=== PATIENT | male | born 1965 | race Caucasian/White ===

== ENCOUNTER → 2021-08-10 | Outpatient (CLI) | payer BC | LOC: ORTHO 11:08 | PROVIDERS: ATTEND Orthopaedic Surgery | DX: S82.899A Other fracture of unspecified lower leg, initial encounter for closed fracture (principal); X58.XXXA Exposure to other specified factors, initial encounter | CPT/HCPCS: 99213 ==

== ENCOUNTER → 2021-08-17 | Outpatient (CLI) | payer BC ==
--- NOTE | 2021-08-17 11:24 | Diagnostic Imaging Report ---
EXAM: CT right ankle without contrast. DATE: August 17, 2021. INDICATION: 55-year-old male, right ankle pain and fracture. COMPARISON: Radiographs August 09, 2021. TECHNIQUE: Axial CT images of the right ankle were obtained without contrast. Coronal and sagittal reformats were obtained and provided. All CT scans use one or more of the following dose optimizing techniques: automated exposure control, MA and/or KvP adjustment based on patient size and exam type or iterative reconstruction. FINDINGS: There is a comminuted mildly displaced fracture of the posterior malleolus with the fracture site including involvement of the expected attachment site of the posterior syndesmotic ligament. There is irregularity of the contour of the posterior margin of the articulating surface of the distal tibia relating to this fracture. There is grossly unremarkable alignment of the ankle mortise. There is no additional identified fracture. There is no tibiotalar joint effusion or subtalar joint effusion. The joint spaces are well preserved. There is prominent and fairly diffuse subcutaneous edema. IMPRESSION: 1. Comminuted mildly displaced fracture of the posterior malleolus which includes fracture involvement of the expected attachment site of the posterior syndesmotic ligament. There is also associated irregularity of the articulating surface of the posterior margin of the distal tibia. 2. No additional identified acute fracture. 3. Grossly unremarkable alignment of the ankle mortise. Dictated by: Dictated on workstation # [id number]
== END ==
LOC: RAD FS 10:26
PROVIDERS: ATTEND Orthopaedic Surgery
DX: S82.391A Other fracture of lower end of right tibia, initial encounter for closed fracture (principal); X58.XXXA Exposure to other specified factors, initial encounter
CPT/HCPCS: 73700

== ENCOUNTER → 2021-09-09 | Outpatient (CLI) | payer BC ==
--- NOTE | 2021-09-09 14:56 | Diagnostic Imaging Report ---
INDICATION: Fracture followup. COMPARISON: 08/09/2021 FINDINGS: Multiple radiographic views of the right ankle were obtained. There is persistent moderate generalized soft tissue swelling and edema. Irregularity involving the posterior distal margins of the tibia is again identified and is consistent with fracture described on prior study. Fracture lines are less conspicuous. This may be related to partial interval healing versus slight changes in projection. No new acute osseous abnormalities seen. Joint spaces are maintained. No unexpected radiopaque foreign bodies are identified. IMPRESSION: 1. Redemonstration nonacute fracture of the distal right tibia as described above. Dictated by: Dictated on workstation # [id number]
== END ==
LOC: RAD FS 14:36
PROVIDERS: ATTEND Orthopaedic Surgery
DX: Z47.89 Encounter for other orthopedic aftercare (principal); S82.201D Unspecified fracture of shaft of right tibia, subsequent encounter for closed fracture with routine healing; X58.XXXD Exposure to other specified factors, subsequent encounter
CPT/HCPCS: 73610

== ENCOUNTER → 2021-10-07 | Outpatient (CLI) | payer BC ==
--- NOTE | 2021-10-07 15:40 | Diagnostic Imaging Report ---
INDICATION: Soft tissue swelling, followup. FINDINGS: The ankle alignment is normal. The ankle mortise is well-maintained. No definite acute-appearing fracture is identified. The posterior distal tibia appears similar to the prior study. There continues to be some soft tissue swelling about the medial and lateral ankle. No new abnormality is seen. IMPRESSION: Continued soft tissue swelling. The overall appearance of the right ankle is stable when compared with the exam from 09/09/2021. Dictated by: Dictated on workstation # [id number]
== END ==
LOC: RAD FS 12:53
PROVIDERS: ATTEND Orthopaedic Surgery
DX: M25.471 Effusion, right ankle (principal)
CPT/HCPCS: 73610

== ENCOUNTER → 2021-10-07 | Outpatient (CLI) | payer BC | LOC: ORTHO 15:41 | PROVIDERS: ATTEND Orthopaedic Surgery | DX: S82.891D Other fracture of right lower leg, subsequent encounter for closed fracture with routine healing (principal); X58.XXXD Exposure to other specified factors, subsequent encounter ==